=== PATIENT | male | born 1990 | race American Indian/Alaskan Native ===

== ENCOUNTER 2020-11-27 07:15 | Emergency (ER) | payer OTHER ==
[2020-11-27] MEDS ORDERED: Lactated Ringers 1,000 ML IV ONE (07:40)
[2020-11-27] MEDS ORDERED: Sodium Chloride 0.9% 10 ML Syringe FLUSH PRN (07:42)
[2020-11-27] MEDS ORDERED: Sodium Chloride 0.9% 2.5 ML Syringe FLUSH PRN (07:42)
[2020-11-27] MEDS ORDERED: Piperacillin/Tazobactam 3.375 GM in Sodium Chloride 0.9% 50 ML IV ONE (07:43)
[2020-11-27] MEDS ORDERED: VANCOmycin 1.5 GM/300 ML 1.5 GM in Premix Bag 1 BAG IV ONE (07:44)
[2020-11-27] MEDS ORDERED: Diphtheria,Pertussis(Acell),Tetanus Vaccine 0.5 ML Syringe IM ONE (07:45)
--- NOTE | 2020-11-27 08:07 | EDM.PDOC ---
ED HPI GENERAL MEDICAL PROBLEM - General Chief Complaint: Upper Extremity Injury/Pain Stated Complaint: RIGHT HAND INFECTION Time Seen by Provider: 11/27/20 07:28 - History of Present Illness INITIAL COMMENTS - FREE TEXT/NARRATIVE: 30-year-old male presents to the emergency department complaining of right hand infection. He states that about 4 days ago he slammed it working on a car using a july. Now it is red and swollen and tender with pus coming out of it. Patient denies any history of diabetes. No fevers. Pain is worse with movement and patient is unable to fully extend his fifth pinky right hand digit right hand Pain Score (Numeric/FACES): 7 - Related Data Allergies Allergy/AdvReac Type Severity Reaction Status Date / Time No Known Allergies Allergy Verified 11/27/20 07:33 Home Meds: Home Meds . [No Known Home Meds] 11/27/20 [History] Past Medical History - Past Health History Medical/Surgical History: Denies Medical/Surgical History Social & Family History - Tobacco Use Tobacco Use Status *Q: Never Tobacco User - Recreational Drug Use Recreational Drug Use: No Review of Systems - Review of Systems Review Of Systems: See Below Constitutional: Denies: Chills, Fever Respiratory: Denies: Shortness of Breath Musculoskeletal: Reports: Joint Pain Skin: Reports: Erythema Neurological: Denies: Numbness, Tingling ED EXAM, GENERAL - Physical Exam Exam: See Below Free Text/Narrative:: CONSTITUTIONAL: well appearing in no acute distress SKIN: Erythema and warmth and swelling and purulent material on the dorsal surface of the right hand at the fifth metacarpal phalangeal joints. HENT: Normocephalic, atraumatic, NECK: normal range of motion PULMONARY: normal chest rise and fall, no respiratory distress or stridor NEUROLOGIC: normal speech, moves all extremities, grossly non-focal MUSCULOSKELETAL: Patient with swelling and discomfort to the fifth metacarpal phalangeal joint dorsally. He is unable to extend the digit with any form of strength. The area is masked by a large amount of purulence but clinically this is consistent with an extensor tendon avulsion PSYCHIATRIC: normal mood and affect Course - Vital Signs Last Recorded V/S: Last Vital Signs Temp 35.5 C L 11/27/20 07:29 Pulse 92 11/27/20 09:15 Resp 17 11/27/20 07:29 BP 147/100 H 11/27/20 09:15 Pulse Ox 100 11/27/20 09:15 - Orders/Labs/Meds Labs: Laboratory Tests 11/27/20 11/27/20 11/27/20 Range/Units 07:54 07:54 07:54 WBC 10.78 (4.0-11.0) K/uL RBC 5.36 (4.50-5.90) M/uL Hgb 16.0 (13.0-17.0) g/dL Hct 46.8 (38.0-50.0) % MCV 87.3 (80.0-98.0) fL MCH 29.9 (27.0-32.0) pg MCHC 34.2 (31.0-37.0) g/dL RDW Std Deviation 41.0 (28.0-62.0) fl RDW Coeff of Heriberto 13 (11.0-15.0) % Plt Count 345 (150-400) K/uL MPV 10.00 (7.40-12.00) fL Neut % (Auto) 68.8 (48.0-80.0) % Lymph % (Auto) 22.6 (16.0-40.0) % George % (Auto) 8.0 (0.0-15.0) % Eos % (Auto) 0.2 (0.0-7.0) % Baso % (Auto) 0.4 (0.0-1.5) % Neut # (Auto) 7.4 H (1.4-5.7) K/uL Lymph # (Auto) 2.4 (0.6-2.4) K/uL George # (Auto) 0.9 H (0.0-0.8) K/uL Eos # (Auto) 0.0 (0.0-0.7) K/uL Baso # (Auto) 0.0 (0.0-0.1) K/uL Nucleated RBC % 0.0 /100WBC Nucleated RBCs # 0 K/uL Sodium 136 (136-148) mmol/L Potassium 4.2 (3.5-5.1) mmol/L Chloride 99 (98-107) mmol/L Carbon Dioxide 28.1 (21.0-32.0) mmol/L BUN 11 (7.0-18.0) mg/dL Creatinine 1.0 (0.8-1.3) mg/dL Est Cr Clr Drug Dosing 109.00 mL/min Estimated GFR (MDRD) > 60.0 ml/min Glucose 87 (74-106) mg/dL Lactic Acid 1.6 (0.4-2.0) mmol/L Calcium 9.0 (8.5-10.1) mg/dL Total Bilirubin 0.5 (0.2-1.0) mg/dL AST 330 H (15-37) IU/L ALT 667 H (14-63) IU/L Alkaline Phosphatase 141 H (46-116) U/L Total Protein 8.6 H (6.4-8.2) g/dL Albumin 4.0 (3.4-5.0) g/dL Globulin 4.6 H (2.6-4.0) g/dL Albumin/Globulin Ratio 0.9 (0.9-1.6) Meds: Medications Discontinued Medications Generic Name Dose Route Start Last Admin Trade Name Freq PRN Reason Stop Dose Admin Diphtheria/Tetanus/Acell Pertussis 0.5 ml 11/27/20 07:45 11/27/20 08:28 Diphtheria,Pertussis(Acell),Tetanus Vaccine 0.5 Ml Syringe IM 11/27/20 07:46 0.5 ml .ONCE ONE Administration Piperacillin Sod/Tazobactam 50 mls @ 100 mls/hr 11/27/20 07:43 11/27/20 08:18 Sod 3.375 gm/ Sodium Chloride IV 11/27/20 08:12 100 mls/hr ONETIME ONE Administration Vancomycin HCl 1.5 gm/ Premix 300 mls @ 200 mls/hr 11/27/20 07:44 11/27/20 08:20 IV 11/27/20 09:13 200 mls/hr ONETIME ONE Administration Lactated Ringer's 1,000 mls @ 999 mls/min 11/27/20 07:40 11/27/20 08:16 Ringers, Lactated IV 11/27/20 07:41 999 mls/min .BOLUS ONE Administration Morphine Sulfate 4 mg 11/27/20 08:24 11/27/20 08:34 Morphine 4 Mg/Ml Syringe IVPUSH 07/29/21 08:25 4 mg NOW STA Administration Sodium Chloride 10 ml 11/27/20 07:42 11/27/20 08:30 Sodium Chloride 0.9% 10 Ml Syringe FLUSH 10 ml ASDIRECTED PRN Administration Keep Vein Open Sodium Chloride 2.5 ml 11/27/20 07:42 11/27/20 08:30 Sodium Chloride 0.9% 2.5 Ml Syringe FLUSH 2.5 ml ASDIRECTED PRN Administration Keep Vein Open Departure - Departure Time of Disposition: :29 Disposition: DC/Tfer to Acute Hospital 02 Condition: Good Clinical Impression: Infected hand - Discharge Information Referrals: PCP,None [Primary Care Provider] - Forms: ED Department Discharge Sepsis Event Note (ED) - Evaluation Sepsis Screening Result: Possible Sepsis Risk
[2020-11-27] MEDS ORDERED: Morphine 4 MG/ML Syringe IVPUSH STA (08:24)
--- NOTE | 2020-11-27 08:36 | CR ---
Indication: Right hand injury, infection Comparison: None available. Technique: AP, Lateral, and Oblique views right hand were obtained Findings: There is no displaced fracture or dislocation. There is prior internal fixation of the proximal 3rd phalanx without evidence of hardware failure. The joint spaces are grossly preserved. There is a large soft tissue laceration and marked edema of the dorsal hypo thenar soft tissues. Impression: Demonstration of a large soft tissue laceration and dorsal soft tissue swelling overlying the distal 5th metacarpal. No evidence of underlying fracture. Dictated by Herrera Galindo MD @ 11/27/2020 8:35:[address] Herrera Galindo @ Nov 27 2020 8:35AM
[2020-11-27 08:37] LABS: BLOOD UREA NITROGEN,BUN 11 mg/dL (7.0-18.0); CARBON DIOXIDE,CO2 28.1 mmol/L (21.0-32.0); CHLORIDE,CL 99 mmol/L (98-107); GLUCOSE RANDOM 87 mg/dL (74-106); POTASSIUM,K 4.2 mmol/L (3.5-5.1); SODIUM,NA 136 mmol/L (136-148)
== END 2020-11-27 09:56 ==
LOC: MW.ED 07:15
DX: L08.9 Local infection of the skin and subcutaneous tissue, unspecified (principal); Z23 Encounter for immunization
CPT/HCPCS: 36415; 73130; 80053; 83605; 85025; 87040; 90471; 90715; 96365; 96375; 99285; J2270; J2543; J3370; J7120; 99284